=== PATIENT | male | born 1990 | race Caucasian/White ===

== ENCOUNTER 2018-12-09 00:17 | Emergency (ER) | payer OTHER ==
[~2018-12-09] VITALS: Ht 180.3 cm; Wt 105.0 kg
[2018-12-09 00:19] VITALS: BP 146/82
--- NOTE | 2018-12-09 00:23 | NUR ---
SEEN BY PA IN TRIAGE
--- NOTE | 2018-12-09 00:29 | NUR ---
FIRST CONTACT WITH PT. PT WORKS AT THE NURSING HOME, STATES DURING A BLOOD DRAW HE GOT BLOOD SPLASHED ONTO HIS FACE. PT'S AOX4. RESPS EVEN AND UNLABORED. PT STATES NO ANY SYMPTOMS.
--- NOTE | 2018-12-09 00:53 | NUR ---
PT GIVEN DC INSTRUCTIONS. PT'S AOX4. RESPS EVEN AND UNLABORED. NO ACUTE DISTRESS AT DC. PT WOULD LIKE TO STAY IN ROOM UNTILL RESULTS COME BACK.
== END 2018-12-09 00:54 | disposition home or self-care (01) ==
LOC: ED 00:48
DX: Z00.00 Encounter for general adult medical examination without abnormal findings (principal)
CPT/HCPCS: 36415; 86705; 86706; 87340; 87806; 99283; G0475